=== PATIENT | male | born 1970 | race Caucasian/White ===

== ENCOUNTER 2016-04-22 21:54 | Emergency (ER) | payer BC ==
[~2016-04-22] VITALS: Ht 172.7 cm; Wt 113.4 kg
[2016-04-22 21:55] VITALS: BP 172/95
[2016-04-22] MEDS ORDERED: BACTRIM 160MG/800MG DS TAB PO ONE (23:15)
[2016-04-22] MEDS ORDERED: BACT800T5 PO (23:34)
== END 2016-04-23 00:36 | disposition home or self-care (01) ==
LOC: M ED 23:02
DX: L02.214 Cutaneous abscess of groin (principal)

== ENCOUNTER 2021-11-09 14:13 | Emergency (ER) | payer BC ==
[~2021-11-09] VITALS: Ht 172.7 cm; Wt 122.5 kg
[~2021-11-09 14:13] MED LIST: BACT800T5 PO
[2021-11-09] MEDS ORDERED: NS 1,000 ML IV ONE (17:00)
[2021-11-09 17:16] LABS: BASO % 0.5 % (0.0-1.0); EOS # 0.1 10^3/uL (0.0-0.5); EOS % 2.1 % (0.0-3.0); HEMATOCRIT 46.4 % (42.0-52.0); HEMOGLOBIN 15.6 g/dl (13.5-17.5); LYMPH # 2.4 10^3/uL (1.5-5.0); LYMPH % 36.1 % (24.0-44.0); MEAN CORPUSCULAR HEMOGLOBIN 29.1 pg (27.0-33.0); MEAN CORPUSCULAR HGB CONC 33.6 g/dl (32.0-36.5); MEAN CORPUSCULAR VOLUME 86.4 fl (80.0-96.0); MONO # 0.5 10^3/uL (0.0-0.8); MONO % 7.2 % (2.0-8.0); NEUTROPHILS # 3.5 10^3/uL (1.5-8.5); NEUTROPHILS % 53.6 % (36.0-66.0); PLATELET COUNT, AUTOMATED 217 10^3/uL (150-450); RED BLOOD COUNT 5.37 10^6/uL (4.30-6.10); WHITE BLOOD COUNT 6.5 10^3/uL (4.0-10.0)
[2021-11-09 17:41] LABS: BLOOD UREA NITROGEN 11 MG/DL (7-18); CALCIUM LEVEL 8.9 MG/DL (8.5-10.1); CARBON DIOXIDE LEVEL 25 MEQ/L (21-32); CHLORIDE LEVEL 108 MEQ/L (98-107); CREATININE FOR GFR 0.95 MG/DL (0.70-1.30); GLOMERULAR FILTRATION RATE > 60.0 (>60); GLUCOSE, FASTING 92 MG/DL (70-100); POTASSIUM SERUM 4.4 MEQ/L (3.5-5.1); SODIUM LEVEL 137 MEQ/L (136-145)
[2021-11-09 18:09] LABS: ALBUMIN 3.9 GM/DL (3.2-5.2); ALT/SGPT 161 U/L (12-78); BILIRUBIN,DIRECT 0.3 MG/DL (0.0-0.2); BILIRUBIN,TOTAL 1.2 MG/DL (0.2-1.0); LIPASE 104 U/L (73-393); TOTAL PROTEIN 7.3 GM/DL (6.4-8.2)
[2021-11-09] MEDS ORDERED: ISOVUE-370 76% 100ML VIAL As Ordered ONE (18:39)
[2021-11-09] MEDS ORDERED: LIDO5DIS41 TOP (21:14)
[2021-11-09] MEDS ORDERED: ERYT5OIN25 OP (21:29)
[2021-11-09 21:50] VITALS: BP 151/94
[2021-11-09 22:25] LABS: MONO REFLEX EBV COMP NEGATIVE (NEGATIVE)
[2021-11-10 08:48] LABS: HEPATITIS B SURFACE ANTIGEN NEGATIVE (NEGATIVE)
[2021-11-10 09:15] LABS: HEPATITIS B CORE ANTIBODY IGM NEGATIVE (NEGATIVE); HEPATITIS C VIRUS ABY INDEX < 0.0 INDEX (<0.8)
[2021-11-12 16:08] LABS: EBV AB TO NUCLEAR ANTIGEN <18.0 U/mL (0.0-17.9); EBV VIRAL CAPSID AG IgG 72.7 U/mL (0.0-17.9); EBV VIRAL CAPSID AG IgM <36.0 U/mL (0.0-35.9)
== END 2021-11-09 21:53 | disposition home or self-care (01) ==
LOC: M ED 14:13
DX: K80.20 Calculus of gallbladder without cholecystitis without obstruction (principal); B34.0 Adenovirus infection, unspecified; M62.830 Muscle spasm of back; K76.0 Fatty (change of) liver, not elsewhere classified; H10.33 Unspecified acute conjunctivitis, bilateral; R10.84 Generalized abdominal pain; R16.1 Splenomegaly, not elsewhere classified; Z87.442 Personal history of urinary calculi; J45.909 Unspecified asthma, uncomplicated
CPT/HCPCS: 74177; 76705; 80048; 80076; 81002; 83690; 85025; 86308; 86664; 86665; 86705; 86709; 86803; 87340; 87486; 87581; 87633; 87798; 96360; 99284; Q9967